=== PATIENT | male | born 2000 | race Caucasian/White ===

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

== ENCOUNTER 2021-08-18 20:57 | Emergency (ER) | payer MEDICAID, OTHER ==
[~2021-08-18] VITALS: Ht 188 cm; Wt 131.5 kg
[2021-08-18] MEDS ORDERED: SILVER SULFADIAZINE 1 % TOPICAL CREAM 50GM TOP ONE (23:00)
[2021-08-18 23:02] VITALS: BP 125/101
== END 2021-08-19 01:06 | disposition home or self-care (01) ==
LOC: ER 20:57
DX: T23.222A Burn of second degree of single left finger (nail) except thumb, initial encounter (principal); X08.8XXA Exposure to other specified smoke, fire and flames, initial encounter; Y93.89 Activity, other specified; Y92.89 Other specified places as the place of occurrence of the external cause; Y99.8 Other external cause status
CPT/HCPCS: 16020

== ENCOUNTER 2021-09-20 08:22 | Emergency (ER) | payer OTHER ==
[~2021-09-20] VITALS: Ht 188 cm; Wt 145.1 kg
[2021-09-20 10:34] VITALS: BP 135/94
== END 2021-09-20 10:54 | disposition home or self-care (01) ==
LOC: ER 08:22
DX: Z00.00 Encounter for general adult medical examination without abnormal findings (principal); K21.9 Gastro-esophageal reflux disease without esophagitis